=== PATIENT | female | born 1965 | race Caucasian/White ===

== ENCOUNTER 2021-01-23 07:52 | Emergency (ER) | payer OTHER ==
[2021-01-23 08:06] VITALS: BMI 25.3
[2021-01-23] MEDS ORDERED: DEXAMETHASONE LIQUID 0.5 MG/5 ML PO ONE (08:47)
[2021-01-23] MEDS ORDERED: IBUPROFEN 400 MG TABLET (FP) PO ONE ×2 (08:47→09:30)
[2021-01-23] MEDS ORDERED: DEXAMETHASONE SOD PHOSPHATE 10 MG/1 ML VIAL ONE (09:30)
[2021-01-23 10:52] VITALS: BP 113/80; PULSE 95; TEMP 98.2
== END 2021-01-23 11:58 | disposition home or self-care (01) ==
LOC: JER 07:52
DX: J02.0 Streptococcal pharyngitis (principal); Z11.52 Encounter for screening for COVID-19
CPT/HCPCS: 87651; 87804; 99283-25; C9803; U0003; U0005

== ENCOUNTER 2021-01-29 10:58 | Emergency (ER) | payer OTHER ==
[2021-01-29 11:07] VITALS: BP 168/95; PULSE 69; TEMP 98.6; BMI 25.2
== END 2021-01-29 13:29 | disposition home or self-care (01) ==
LOC: JERFT 10:58
DX: H10.33 Unspecified acute conjunctivitis, bilateral (principal)
CPT/HCPCS: 99283-25

== ENCOUNTER 2022-03-05 14:28 | Emergency (ER) | payer OTHER ==
[2022-03-05 14:45] VITALS: BMI 23.8
[2022-03-05 17:11] VITALS: BP 164/80; PULSE 70; RESP 16; TEMP 98.1
== END 2022-03-05 17:09 | disposition home or self-care (01) ==
LOC: JER 14:28
DX: R03.0 Elevated blood-pressure reading, without diagnosis of hypertension (principal)
CPT/HCPCS: 93005; 93010; 99283-25

== ENCOUNTER 2023-01-06 20:28 | Emergency (ER) | payer OTHER ==
[2023-01-06 21:07] VITALS: BP 158/82; PULSE 71; RESP 16; TEMP 97.9; BMI 23.9
[2023-01-06] MEDS ORDERED: DIPHTH,PERTUSS(ACELL),TET 0.5 ML DISP.SYRIN IM ONE ×2 (22:12→22:16)
[2023-01-06] MEDS ORDERED: KETOROLAC TROMETHAMINE 30 MG/1 ML VIAL IM ONE (22:12)
[2023-01-06] MEDS ORDERED: KETOROLAC TROMETHAMINE 30 MG/1 ML VIAL ONE (22:15)
== END 2023-01-07 00:32 | disposition home or self-care (01) ==
LOC: JERFT 20:28 → JER 20:28 → JERFT 01-07 00:32
PROC: 3E0233Z Introduction of Anti-inflammatory into Muscle, Percutaneous Approach (ICD-10-PCS; principal; 2023-01-06)
PROC: 3E0234Z Introduction of Serum, Toxoid and Vaccine into Muscle, Percutaneous Approach (ICD-10-PCS; 2023-01-06)
DX: M25.561 Pain in right knee (principal); S80.01XA Contusion of right knee, initial encounter; W10.1XXA Fall (on)(from) sidewalk curb, initial encounter; Y92.480 Sidewalk as the place of occurrence of the external cause
CPT/HCPCS: 73562-TC-RT-FY; 90471; 90715; 96372; 99284-25